=== PATIENT | female | born 1990 | race Two or more races ===

== ENCOUNTER 2025-01-31 22:06 | Emergency (ER) | payer MEDICAID, OTHER ==
[~2025-01-31] VITALS: Ht 149.9 cm; Wt 63.6 kg
--- NOTE | 2025-01-31 22:28 | ED.PDOC ---
History of Present Illness HPI Comments 34 y/o F presents with son for c/o intermittent epigastric abdominal pain, that radiates to her sternal chest area, with associated nausea for 1x week. Patient reports on pain being sharp in quality. Endorses on having similar symptoms in the past and being informed on having gallstones in the past. Now, she also c/o pain extending to both the left and right-side of her abdomen. Reports no further significant history aside from remote history of seizures (last episode 10 years ago) and headaches. Denies any vomiting, diarrhea, constipation, shortness of breath, fever, chills, urinary symptoms, or other associated symptoms. Chief Complaint: Abdominal Pain Time Seen by MD: 22:20 Reviewed Notes: Nurses Notes, Medications, Allergies Allergies: Coded Allergies: NO KNOWN ALLERGIES (Unverified , 01/31/25) Home Meds Active Scripts Ondansetron Odt 4MG Tab (ZOFRAN PO) 4 Mg Tb, 4 MG PO Q6HP PRN, #30 TAB ODT TAB-DISSOLVE IN MOUTH, THEN SWALLOW Prov:DORENE RDOAS MD 02/01/25 Dicyclomine Hcl (BENTYL CAPSULE) 10 Mg Cp, 1 CAP PO Q6HPRN PRN, #100 CAP 3 Refills Prov:DORENE RODAS MD 02/01/25 Information Source: Patient Mode of Arrival: Ambulatory Severity: Moderate Past Medical History PAST MEDICAL HISTORY: Gallstones, Seizures Surgical History: Denies all surgeries FUR TAILOR History: Denies all FUR TAILOR Hx Family History Family History: Unknown Social History Smoker: Non-Smoker Alcohol: Denies ETOH Use Drugs: Denies Drug Use Lives In: Home All Other Systems: Reviewed and Negative (as per HPI) Physical Exam General Appearance: Mild Distress, Normal, Other (appears uncomfortable ) HEENT: Normal ENT Inspection, Pharynx Normal, TMs Normal Neck: Full Range of Motion, Non-Tender, Normal, Normal Inspection Respiratory: Chest Non-Tender, Lungs Clear, No Accessory Muscle Use, No Respiratory Distress, Normal Breath Sounds Cardiovascular: No Edema, No JVD, No Murmur, No Gallop, Normal Peripheral Pulses, Regular Rate/Rhythm Breast Exam: Deferred Gastrointestinal: Epigastric, No Organomegaly, No Pulsatile Mass, Normal Bowel Sounds, Soft, Tenderness (epigastric ) Genitalia: Deferred Pelvic: Deferred Rectal: Deferred Extremities: No calf tenderness, Normal capillary refill, Normal inspection, Normal range of motion, Non-tender, No pedal edema Musculoskeletal : Apperance: Normal Neurologic: Alert, 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 Was a procedure done?: No Differential Dx Considerations may include: gastritis, gastroenteritis, GERD, PUD, cholelithiasis, cholecystitis, viral syndrome, , among others X-Ray, Labs, Meds, VS Vital Signs Date Time Temp Pulse Resp B/P (MAP) Pulse Ox O2 Delivery O2 Flow Rate FiO2 02/01/25 01:30 82 16 98 Room Air* 0 21 02/01/25 01:29 98.0 82 16 114/77 (89) 98 98.0 01/31/25 22:10 97.9 95 18 140/96 (111) 96 97.9 Lab Test 01/31/25 22:31 01/31/25 22:21 Range/Units White Blood Count 11.0 H 4.4-10.8 10^3/uL Red Blood Count 4.74 4.0-5.20 10^6/uL Hemoglobin 13.4 12.2-16.2 g/dL Hematocrit 39.5 36.0-46.0 % Mean Corpuscular Volume 83.3 80.0-100.0 fL Mean Corpuscular Hemoglobin 28.3 28.0-32.0 pg Mean Corpuscular Hemoglobin Concent 33.9 32.0-36.0 g/dL Red Cell Distribution Width 14.7 H 11.8-14.3 % Platelet Count 258 140-450 10^3/uL Mean Platelet Volume 9.2 6.9-10.8 fL Neutrophils (%) (Auto) 66.3 37.0-80.0 % Lymphocytes (%) (Auto) 25.2 10.0-50.0 % Monocytes (%) (Auto) 4.8 0.0-12.0 % Eosinophils (%) (Auto) 3.3 0.0-7.0 % Basophils (%) (Auto) 0.4 0.0-2.0 % Neutrophils # (Auto) 7.3 1.6-8.6 10 ^3/uL Lymphocytes # (Auto) 2.8 0.4-5.4 10 ^3/uL Monocytes # (Auto) 0.5 0-1.3 10 ^3/uL Eosinophils # (Auto) 0.4 0-0.8 10 ^3/uL Basophils # (Auto) 0 0-0.2 10 ^3/uL Nucleated Red Blood Cells 0.1 % Sodium Level 139 136-145 mmol/L Potassium Level 3.6 3.5-5.1 mmol/L Chloride Level 106 98-107 mmol/L Carbon Dioxide Level 25 20-31 mmol/L Anion Gap 8 5-15 Blood Urea Nitrogen 10 9-23 mg/dL Creatinine 0.68 0.550-1.02 mg/dL Glomerular Filtration Rate Calc 117 >90 mL/min BUN/Creatinine Ratio 14.7 10.0-20.0 Serum Glucose 125 H 74-106 mg/dL Calcium Level 9.9 8.7-10.4 mg/dL Total Bilirubin 0.2 0.2-1.0 mg/dL Aspartate Amino Transferase (AST) 15 13-40 U/L Alanine Aminotransferase (ALT) 18 7-40 U/L Alkaline Phosphatase 130 H 46-116 U/L Total Protein 7.5 5.7-8.2 g/dL Albumin 4.7 3.2-4.8 g/dL Lipase 45 12-53 U/L Urine Color Light-yellow Yellow Urine Clarity Clear Clear Urine pH 6.5 5.0-9.0 Urine Specific [place] 1.020 1.001-1.035 Urine Protein Negative Negative Urine Ketones Negative Negative Urine Blood 3+ H Negative /uL Urine Nitrite Negative Negative Urine Bilirubin Negative Negative Urine Urobilinogen 4 H Negative mg/dL Urine Leukocyte Esterase Negative Negative /uL Urine RBC 40 0 - 4 /hpf Urine Microscopic WBC 1 0-5 /HPF Urine Squamous Epithelial Cells Few <5 /hpf Urine Bacteria None seen None Seen /hpf Urine Glucose Normal Normal mg/dL Urine Test Negative Negative Current Medications Medications (Trade) Dose Ordered Sig/[place] Route Start Time Stop Time Status Last Admin Ondansetron HCl (Zofran Po) 8 mg ONCE ONCE PO 01/31/25 22:15 01/31/25 22:20 DC 02/01/25 01:23 Famotidine (Pepcid Tablet) 20 mg ONCE ONCE PO 01/31/25 22:15 01/31/25 22:20 DC 02/01/25 01:24 Al Hydrox/Mg Hydrox/Simethicone (Maalox Plus) 30 ml ONCE ONCE PO 01/31/25 22:15 01/31/25 22:20 DC 02/01/25 01:23 [place] [id number] Ph: [phone] DIAGNOSTIC IMAGING Diagnostic Imaging Report : [id number] Signed PATIENT: EMILIA REILLY ACCT: [id number] UNIT: [id number] : 1990 LOC: ER ROOM / BED: / AGE / SEX: 34 / F ADM STATUS: REG ER SERVICE 13 ORDERING PHYSICIAN: DORENE RODAS MD PROCEDURE(s): GBUS - GALLBLADDER REASON: upper abd pain ORDER NUMBER(s): [id number], ACCESSION NUMBER(s): [id number] RIGHT UPPER QUADRANT ABDOMINAL ULTRASOUND CLINICAL HISTORY: upper abd pain COMPARISON: None TECHNIQUE: Grayscale and color Doppler ultrasound imaging of the right upper quadrant is performed. FINDINGS: Pancreas: Obscured by artifact from bowel gas. Liver: No discrete hepatic lesions as visualized. The portal vein appears patent. Gallbladder: No sizable, shadowing calculi. No gallbladder wall thickening. No sonographic del cid's sign elicited. Common bile duct: Nondilated. Right Kidney: Measures 10.4 cm in length. No hydronephrosis. Right upper quadrant Inferior vena cava: Visualized portions appear grossly patent. IMPRESSION: No acute findings as visualized. If there is persistent clinical concern, CT may be considered to further evaluate. ATED BY: WILMAR DURAND MD DICTATED DATE/TIME: 02/01/251 SIGNED BY: WILMAR DURAND MD SIGNED DATE/TIME: 02/01/25 0002 CC: Time of 1ST Reevaluation: 22:50 Reevaluation 1ST: Unchanged Patient Education/Counseling: Diagnosis, Treatment Family Education/Counseling: Other (patient's children are minors) Departure 1 Departure Time of Disposition: 00:00 Impression: Primary Impression: Biliary colic Disposition: 01 HOME / SELF CARE / HOMELESS Condition: Stable e-Prescriptions Ondansetron Odt 4MG Tab (ZOFRAN PO) 4 Mg Tb 4 MG PO Q6HP PRN, #30 TAB ODT TAB-DISSOLVE IN MOUTH, THEN SWALLOW Prov: DORENE RODAS MD 02/01/25 Dicyclomine Hcl (BENTYL CAPSULE) 10 Mg Cp 1 CAP PO Q6HPRN PRN, #100 CAP 3 Refills Prov: DORENE RODAS MD 02/01/25 Discharged With: Self Critical Care Note Critical Care Time?: No Stability Stability form required: No Heart Score Heart Score: Heart Score Response (Comments) Value History N/A 0 EKG N/A 0 Age N/A 0 Risk Factors N/A 0 Troponin N/A 0 Total 0 I personally scribed for DORENE RODAS MD ([email or web address]) on 01/31/25 at 22:28. Electronically submitted by Reji Alvarado ([email or web address]). I personally scribed for DORENE RDOAS MD ([email or web address]) on 02/01/25 at 00:18. Electronically submitted by Reji Alvarado ([email or web address]). DORENE RODAS MD Jan 31, 2025 22:28
[2025-01-31 22:41] LABS: Urine Bacteria None Seen /hpf (None Seen)
[2025-01-31 23:01] LABS: Basophils # (auto) 0 10 ^3/uL (0-0.2); Basophils % (auto) 0.4 % (0.0-2.0); Eosinophils # (auto) 0.4 10 ^3/uL (0-0.8); Eosinophils % (auto) 3.3 % (0.0-7.0); Hematocrit 39.5 % (36.0-46.0); Hemoglobin 13.4 g/dL (12.2-16.2); Lymphocytes # (auto) 2.8 10 ^3/uL (0.4-5.4); Lymphocytes % (auto) 25.2 % (10.0-50.0); Mean Corpuscular Hemoglobin 28.3 pg (28.0-32.0); Mean Corpuscular Hgb Conc. 33.9 g/dL (32.0-36.0); Mean Corpuscular Volume 83.3 fL (80.0-100.0); Monocytes # (auto) 0.5 10 ^3/uL (0-1.3); Monocytes % (auto) 4.8 % (0.0-12.0); Neutrophils # (auto) 7.3 10 ^3/uL (1.6-8.6); Neutrophils % (auto) 66.3 % (37.0-80.0); Nucleated Red Blood Cells % 0.1 %; Platelet Count (auto) 258 10^3/uL (140-450); Red Blood Cells 4.74 10^6/uL (4.0-5.20); Red Cell Distribution Width 14.7 % (11.8-14.3)
[2025-01-31 23:05] LABS: Urine Blood 3+ /uL (Negative); Urine Clarity Clear (Clear); Urine Color Light-Yellow (Yellow); Urine Protein, UAD Negative (Negative); Urine Squamous Epithelial Cell FEW /hpf (<5); Urine Urobilinogen 4 mg/dL (Negative); Urine WBC 1 /HPF (0-5); Urine pH 6.5 (5.0-9.0)
[2025-01-31 23:12] LABS: Alanine Aminotransferase 18 U/L (7-40); Albumin 4.7 g/dL (3.2-4.8); Anion Gap 8 (5-15); Aspartate Aminotransferase 15 U/L (13-40); BUN/Creatinine Ratio 14.7 (10.0-20.0); Blood Urea Nitrogen 10 mg/dL (9-23); Calcium 9.9 mg/dL (8.7-10.4); Carbon Dioxide 25 mmol/L (20-31); Chloride 106 mmol/L (98-107); Lipase 45 U/L (12-53); Potassium 3.6 mmol/L (3.5-5.1); Sodium 139 mmol/L (136-145); Total Protein 7.5 g/dL (5.7-8.2)
[2025-01-31 23:15] LABS: Alkaline Phosphatase 130 U/L (46-116); Bilirubin, Total 0.2 mg/dL (0.2-1.0); Glucose 125 mg/dL (74-106)
--- NOTE | 2025-02-01 00:05 | DVH ---
RIGHT UPPER QUADRANT ABDOMINAL ULTRASOUND CLINICAL HISTORY: upper abd pain COMPARISON: None TECHNIQUE: Grayscale and color Doppler ultrasound imaging of the right upper quadrant is performed. FINDINGS: Pancreas: Obscured by artifact from bowel gas. Liver: No discrete hepatic lesions as visualized. The portal vein appears patent. Gallbladder: No sizable, shadowing calculi. No gallbladder wall thickening. No sonographic del cid's s ign elicited. Common bile duct: Nondilated. Right Kidney: Measures 10.4 cm in length. No hydronephrosis. Right upper quadrant Inferior vena cava: Visualized portions appear grossly patent. IMPRESSION: No acute findings as visualized. If there is persistent clinical concern, CT may be considered to further evaluate.
--- NOTE | 2025-02-01 01:09 | DVH ---
CT SCAN ABDOMEN AND PELVIS WITHOUT CONTRAST CLINICAL HISTORY: abd pain , flank pain TECHNIQUE: Helical axial images are obtained from the lung bases through the pelvis without oral cont rast. No intravenous contrast was administered. Coronal and sagittal reformatted images were generate d from thin section reconstructions. One or more of the following radiation dose reduction techniques were used for this examination: automated exposure control, adjustment of the mA and/or kV according to patient size, use of iterative reconstruction technique. COMPARISON: Ultrasound obtained earlier the same day. FINDINGS: LOWER THORAX: Imaged lung bases are grossly clear. ABDOMEN AND PELVIS: Evaluation of visceral and vascular structures is limited due to lack of contrast administration. Approximately 1.2 cm calculus seen within the gallbladder fundus. This is not appreciated on the rece nt ultrasound. No pericholecystic fluid. No significant gallbladder distention. The common bile duct appears normal caliber. No hydroureteronephrosis or sizable, obstructing urinary tract calculi identified. No evidence of abdominal aortic aneurysm. No evidence of bowel obstruction. Normal caliber appendix. No free intraperitoneal air or fluid iden tified. No sizable bladder calculus. No destructive osseous lesions identified. IMPRESSION: Cholelithiasis without other ct evidence to suggest cholecystitis at this time. HIDA scan may be obta ined to further evaluate.
[2025-02-01] MEDS: MAALOX PLUS or MAALOX 30 ML PO ONE (01:23)
[2025-02-01] MEDS: ONDANSETRON ODT 4 MG TAB PO ONE (01:23)
[2025-02-01] MEDS: FAMOTIDINE 20 MG TAB PO ONE (01:24)
[2025-02-01 01:29] VITALS: BP 114/77; TEMP 98
[2025-02-01 01:30] VITALS: PULSE 82; RESP 16; O2SAT 98
[2025-02-01] MEDS ORDERED: DICY10CA PO (01:39)
[2025-02-01] MEDS ORDERED: ZOFR4T PO (01:39)
== END 2025-02-01 01:46 | disposition home or self-care (01) ==
LOC: ER 22:14
DX: K80.50 Calculus of bile duct without cholangitis or cholecystitis without obstruction (principal); R11.0 Nausea
CPT/HCPCS: 36415; 74176; 76705; 80053; 81001; 81025; 83690; 85025; 99284; Q0162